=== PATIENT | female | born 2005 | race Caucasian/White ===

== ENCOUNTER 2023-09-23 04:38 | Emergency (ER) | payer SELFPAY ==
[~2023-09-23] VITALS: Ht 165.1 cm; Wt 65.0 kg
[2023-09-23 04:40] VITALS: O2SAT 96
[2023-09-23] MEDS: MORPHINE SULFATE 4 MG/ML INJ (FOR IV/IM USE) IV STA (05:42)
[2023-09-23] MEDS: SODIUM CHLORIDE 0.9% 1,000 ML IV ONE (05:42)
[2023-09-23] MEDS: ONDANSETRON HCL 4MG/2ML INJ IV STA (05:42)
[2023-09-23 05:52] LABS: BASOPHILS % 0.3 % (0.0-2.0); EOSINOPHILS % 0.1 % (0.0-5.0); HEMATOCRIT. 42.2 % (36.0-48.0); HEMOGLOBIN. 14.5 g/dL (12.0-16.0); LYMPHOCYTES % 7.1 % (20.0-50.0); MEAN CORPUSCULAR HEMOGLOBIN 30.4 pg (28.0-32.0); MEAN CORPUSCULAR HGB CONC 34.3 g/dL (31.0-37.0); MEAN CORPUSCULAR VOLUME 88.7 fL (81.0-99.0); MEAN PLATELET VOLUME 6.9 fl (7.4-10.4); MONOCYTES % 8.7 % (2.0-8.0); NEUTROPHILS % 83.8 % (40.0-76.0); PLATELET 318 x1000/uL (130-400); RED BLOOD CELL COUNT 4.76 mill/uL (4.2-5.4); RED CELL DISTRIBUTION WIDTH 13.1 % (11.6-14.6); WHITE BLOOD COUNT 26.3 x1000/uL (4.5-11.0)
[2023-09-23 06:06] LABS: CHLORIDE 113 mEq/L (98-107); POTASSIUM 3.5 mEq/L (3.5-5.1); SODIUM 142 mEq/L (136-145)
[2023-09-23 06:07] LABS: CALCIUM 8.8 mg/dL (8.7-10.4); CARBON DIOXIDE 17 mEq/L (21-32)
[2023-09-23 06:12] LABS: CREATININE 0.7 mg/dL (0.6-1.0); ETHANOL BLOOD 128 mg/dL (<10); GLUCOSE 97 mg/dL (70-105); UREA NITROGEN BLOOD 11 mg/dL (9-23)
[2023-09-23 06:13] LABS: ALANINE AMINOTRANSFERASE 10 IU/L (10-49)
[2023-09-23 06:14] LABS: ALBUMIN 4.9 g/dL (3.2-4.8); ASPARTATE AMINOTRANSFERASE 24 IU/L (<34); BILIRUBIN TOTAL 0.5 mg/dL (0.1-1.0); CREATINE KINASE 236 IU/L (34-145); PROTEIN TOTAL 8.4 g/dL (6.0-8.3)
[2023-09-23 06:15] LABS: CLARITY URINE CLEAR (CLEAR); COLOR URINE YELLOW (YELLOW); GLUCOSE URINE NEGATIVE (NEGATIVE); KETONES URINE NEGATIVE (NEGATIVE); LEUKOCYTE ESTERASE URINE TRACE (NEGATIVE); NITRITE URINE NEGATIVE (NEGATIVE); OCCULT BLOOD URINE TRACE (NEGATIVE); PH URINE 5.5 (4.5-8.0); PROTEIN URINE TRACE (NEGATIVE); UROBILINOGEN URINE 0.2 E.U./dL (0.2-1.0)
[2023-09-23 06:23] LABS: HCG SCREEN NEGATIVE
[2023-09-23 06:31] LABS: SQUAMOUS EPITHELIAL CELL URINE 1+ /lpf (RARE/1+)
[2023-09-23 06:41] LABS: TRICHOMONAS URINE 1+
[2023-09-23 06:45] LABS: BACTERIA URINE 1+; RBC URINE 0-2 /hpf (0-2); WBC URINE 0-2 /hpf (0-2)
[2023-09-23 06:55] LABS: *AMPHETAMINES SCREEN URINE NEGATIVE (NEGATIVE); *BENZODIAZEPINES SCREEN URINE NEGATIVE (NEGATIVE)
[2023-09-23 06:56] LABS: *BARBITURATES SCREEN URINE NEGATIVE (NEGATIVE); *COCAINE SCREEN URINE NEGATIVE (NEGATIVE); CANNABINOID URINE SCREEN PRESUMPTIVE POSITIVE (NEGATIVE); ECSTASY MDMA SCREEN URINE NEGATIVE (NEGATIVE); METHADONE URINE SCREEN NEGATIVE (NEGATIVE); OPIATES URINE SCREEN NEGATIVE (NEGATIVE); PHENCYCLIDINE URINE SCREEN NEGATIVE (NEGATIVE)
[2023-09-23] MEDS ORDERED: METR-167 MT (07:39)
[2023-09-23] MEDS ORDERED: IBUP-2029 MT (07:39)
[2023-09-23] MEDS: IBUPROFEN 600MG TABLET PO ONE (09:09)
[2023-09-23] MEDS: ONDANSETRON 4MG ODT PO ONE (09:10)
[2023-09-23 09:11] VITALS: BP 104/65; PULSE 95; RESP 10; TEMP 98.6
== END 2023-09-23 09:30 | disposition home or self-care (01) ==
LOC: ER 04:38
DX: S00.81XA Abrasion of other part of head, initial encounter (principal); S30.1XXA Contusion of abdominal wall, initial encounter; A59.9 Trichomoniasis, unspecified; Y08.89XA Assault by other specified means, initial encounter; Y93.89 Activity, other specified; Y92.89 Other specified places as the place of occurrence of the external cause; Y99.8 Other external cause status
CPT/HCPCS: 80053; 80305; 81003; 80320; 82550; 84703; 85025; 36415; 70450; 74176; 96361; 96374; 96375; 99285; Q0162; J2405; J2270; J7030; Z7610; G0480